=== PATIENT | male | born 1990 | race African-American/Black ===

== ENCOUNTER 2021-09-30 05:59 | Emergency (ER) | payer MEDICAID ==
[~2021-09-30] VITALS: Ht 182.9 cm; Wt 76.0 kg
[2021-09-30 06:06] VITALS: BP 119/74
[2021-09-30] MEDS ORDERED: DIPH25CA83 MT (06:51)
[2021-09-30] MEDS ORDERED: DOXY100T2 MT (06:51)
[2021-09-30] MEDS ORDERED: IBUP-2029 MT (06:57)
[2021-09-30] MEDS ORDERED: IBUPROFEN 600MG TABLET PO ONE (07:00)
[2021-09-30] MEDS ORDERED: DIPHENHYDRAMINE 50MG CAPSULE PO ONE (07:00)
== END 2021-09-30 07:30 | disposition home or self-care (01) ==
LOC: ER 05:59
DX: L73.8 Other specified follicular disorders (principal)
CPT/HCPCS: 99283; Q0163

== ENCOUNTER 2021-11-19 10:34 | Emergency (ER) | payer MEDICAID ==
[~2021-11-19] VITALS: Ht 182.9 cm; Wt 78.0 kg
[~2021-11-19 10:34] MED LIST: DIPH25CA83 MT; DOXY100T2 MT; IBUP-2029 MT
[2021-11-19 10:41] VITALS: BP 111/43
[2021-11-19] MEDS ORDERED: DOXY100C5 MT (11:08)
[2021-11-19] MEDS ORDERED: DIPH25CA83 MT (11:34)
== END 2021-11-19 11:38 | disposition home or self-care (01) ==
LOC: ER 10:34
DX: L73.9 Follicular disorder, unspecified (principal); Z91.013 Allergy to seafood
CPT/HCPCS: 99281

== ENCOUNTER 2021-12-02 09:49 | Emergency (ER) | payer MEDICAID ==
[~2021-12-02] VITALS: Ht 182.9 cm; Wt 78.0 kg
[~2021-12-02 09:49] MED LIST changes: +DOXY100C5 MT
[2021-12-02 09:56] VITALS: BP 116/65
[2021-12-02] MEDS ORDERED: MUPI22OI2 TP (10:33)
== END 2021-12-02 10:47 | disposition home or self-care (01) ==
LOC: ER 09:49
DX: N47.6 Balanoposthitis (principal); E78.00 Pure hypercholesterolemia, unspecified
CPT/HCPCS: 99283

== ENCOUNTER 2022-04-21 16:41 | Emergency (ER) | payer MEDICAID ==
[~2022-04-21] VITALS: Ht 182.9 cm; Wt 77.0 kg
[~2022-04-21 16:41] MED LIST changes: +MUPI22OI2 TP
[2022-04-21 16:46] VITALS: BP 117/49
[2022-04-24] MEDS ORDERED: MUPI1OIN4 TP (10:09)
[2022-04-24] MEDS ORDERED: DOXY100C5 MT (10:09)
== END 2022-04-21 18:33 | disposition left against medical advice (07) ==
LOC: ER 16:41
DX: Z53.21 Procedure and treatment not carried out due to patient leaving prior to being seen by health care provider (principal)

== ENCOUNTER 2022-05-16 06:50 | Emergency (ER) | payer MEDICAID ==
[~2022-05-16] VITALS: Ht 180.3 cm; Wt 73.0 kg
[~2022-05-16 06:50] MED LIST changes: +MUPI1OIN4 TP
[2022-05-16] MEDS ORDERED: MAGNESIUM/ALUMINUM HYDROXIDE/SIMETHICONE 30ML UDC PO STA (07:33)
[2022-05-16] MEDS ORDERED: ONDANSETRON 4MG ODT PO STA (07:33)
[2022-05-16] MEDS ORDERED: KETOROLAC 30MG/ML VIAL IV STA (08:41)
[2022-05-16] MEDS ORDERED: ONDANSETRON HCL 4MG/2ML INJ IV STA (08:41)
[2022-05-16] MEDS ORDERED: SODIUM CHLORIDE 0.9% 1,000 ML IV ONE ×2 (08:45→10:45)
[2022-05-16 09:18] LABS: BASOPHILS % 0.6 % (0.0-2.0); HEMATOCRIT. 41.6 % (42.0-52.0); HEMOGLOBIN. 13.9 g/dL (14.0-18.0); LYMPHOCYTES % 27.3 % (20.0-50.0); MEAN CORPUSCULAR HEMOGLOBIN 29.3 pg (28.0-32.0); MEAN CORPUSCULAR VOLUME 87.8 fL (80.0-94.0); MEAN PLATELET VOLUME 8.8 fl (7.4-10.4); MONOCYTES % 7.8 % (2.0-8.0); NEUTROPHILS % 62.3 % (40.0-76.0); PLATELET 223 x1000/uL (130-400); RED BLOOD CELL COUNT 4.73 mill/uL (4.7-6.1); RED CELL DISTRIBUTION WIDTH 14.1 % (11.6-14.6)
[2022-05-16 09:25] LABS: CHLORIDE 105 mEq/L (98-107)
[2022-05-16] MEDS ORDERED: HYDROCODONE/ACETAMINOPHEN 5/325MG TABLET PO ONE (10:45)
[2022-05-16 10:51] LABS: CLARITY URINE CLEAR (CLEAR); COLOR URINE YELLOW (YELLOW); KETONES URINE NEGATIVE (NEGATIVE); LEUKOCYTE ESTERASE URINE NEGATIVE (NEGATIVE); NITRITE URINE NEGATIVE (NEGATIVE); OCCULT BLOOD URINE 2+ (NEGATIVE); PH URINE 5.5 (4.5-8.0); PROTEIN URINE NEGATIVE (NEGATIVE); SPECIFIC GRAVITY URINE 1.018 (1.005-1.030); UROBILINOGEN URINE 0.2 E.U./dL (0.2-1.0)
[2022-05-16 11:03] VITALS: BP 133/79
[2022-05-16] MEDS ORDERED: IBUP-2029 MT (11:08)
[2022-05-16] MEDS ORDERED: ONDA4TAB50 MT (11:08)
== END 2022-05-16 11:20 | disposition home or self-care (01) ==
LOC: ER 07:27
DX: R10.33 Periumbilical pain (principal); R11.2 Nausea with vomiting, unspecified; R19.7 Diarrhea, unspecified; E78.00 Pure hypercholesterolemia, unspecified; Z79.899 Other long term (current) drug therapy
CPT/HCPCS: 36415; 74018; 74176; 80053; 81003; 83690; 85025; 96361; 96374; 96375; 99291; J1885; J2405; J7030; Q0162

== ENCOUNTER 2023-03-06 16:04 | Emergency (ER) | payer MEDICAID ==
[~2023-03-06] VITALS: Ht 182.9 cm; Wt 84.0 kg
[~2023-03-06 16:04] MED LIST changes: +ONDA4TAB50 MT
[2023-03-06] MEDS ORDERED: KETOROLAC 30MG/ML VIAL IV STA (17:09)
[2023-03-06] MEDS: SODIUM CHLORIDE 0.9% 1,000 ML IV ONE (17:15)
[2023-03-06] MEDS ORDERED: IOHEXOL-350 100 ML BOTTLE ONE (17:39)
[2023-03-06 18:38] LABS: BASOPHILS % 0.7 % (0.0-2.0); EOSINOPHILS % 4.2 % (0.0-5.0); HEMATOCRIT. 38.9 % (42.0-52.0); HEMOGLOBIN. 13.1 g/dL (14.0-18.0); MEAN CORPUSCULAR HEMOGLOBIN 29.4 pg (28.0-32.0); MEAN CORPUSCULAR VOLUME 87.4 fL (80.0-94.0); MEAN PLATELET VOLUME 8.3 fl (7.4-10.4); MONOCYTES % 7.5 % (2.0-8.0); NEUTROPHILS % 52.6 % (40.0-76.0); PLATELET 267 x1000/uL (130-400); RED BLOOD CELL COUNT 4.45 mill/uL (4.7-6.1); RED CELL DISTRIBUTION WIDTH 13.7 % (11.6-14.6)
[2023-03-06 18:43] LABS: CHLORIDE 105 mEq/L (98-107)
[2023-03-06 18:46] LABS: PARTIAL THROMBOPLASTIN TIME 29.6 sec (23.4-31.0); PROTHROMBIN TIME 10.9 sec (9.6-11.0)
[2023-03-06 18:53] LABS: *AMPHETAMINES SCREEN URINE NEGATIVE (NEGATIVE); *BARBITURATES SCREEN URINE NEGATIVE (NEGATIVE); *BENZODIAZEPINES SCREEN URINE NEGATIVE (NEGATIVE); *COCAINE SCREEN URINE NEGATIVE (NEGATIVE); CANNABINOID URINE SCREEN NEGATIVE (NEGATIVE); METHADONE URINE SCREEN NEGATIVE (NEGATIVE); OPIATES URINE SCREEN NEGATIVE (NEGATIVE); PHENCYCLIDINE URINE SCREEN NEGATIVE (NEGATIVE)
[2023-03-06 18:54] LABS: ETHANOL BLOOD < 10 mg/dL (-10)
[2023-03-06] MEDS: ASPIRIN 325MG EC TABLET PO ONE ×2 (19:10→19:14)
[2023-03-07 01:10] VITALS: BP 122/39
== END 2023-03-07 01:15 | disposition short-term general hospital (02) ==
LOC: ER 16:04 → CANBEDREQ 03-07 20:46
DX: R20.0 Anesthesia of skin (principal); R51.9 Headache, unspecified; E78.00 Pure hypercholesterolemia, unspecified; Z20.822 Contact with and (suspected) exposure to COVID-19; Z91.013 Allergy to seafood; Z79.899 Other long term (current) drug therapy
CPT/HCPCS: 36415; 70450; 70496; 70498; 71045; 80053; 80305; 80320; 84484; 85025; 85610; 85730; 86850; 86900; 86901; 87426; 93005; 96361; 96374; 99291; C9803; J1885; J7030; Q9967; Z7610; G0480

== ENCOUNTER → 2023-09-24 | Emergency (ER) | payer SELFPAY ==
[~2023-09-24] VITALS: Ht 182.9 cm; Wt 84.0 kg
[~2023-09-24] MED LIST changes: +TOPUD PO
[2023-09-24 02:59] VITALS: BP 128/74; PULSE 83; RESP 14; TEMP 98.5; O2SAT 98
== END ==
LOC: ER 02:49
DX: M79.10 Myalgia, unspecified site (principal)
CPT/HCPCS: 99281